=== PATIENT | male | born 1960 ===

== ENCOUNTER 2017-10-17 06:10 | Day surgery (SDC) | payer OTHER ==
[~2017-10-17 06:10] MED LIST: APATATE LIQUID120 ML PO; DULOXETINE HCL20 MG PO; GLIPIZIDE10 MG PO; HUMULIN 70100 UNIT/1; LIPITOR20 MG PO; LYRICA50 MG PO; NORFLEX100MG PO
== END 2017-10-17 15:00 | disposition home or self-care (01) ==
LOC: CIR.AMB 06:10
DX: M47.816 Spondylosis without myelopathy or radiculopathy, lumbar region (principal)